=== PATIENT | male | born 1960 | race Caucasian/White ===

== ENCOUNTER 2021-09-10 16:38 | Outpatient (CLI) | payer OTHER, SELFPAY ==
[2021-09-10 16:48] VITALS: BP 142/88; PULSE 92; RESP 18; TEMP 36.6; O2SAT 100; BMI 29.8
[2021-09-10] MEDS: 0.9% Saline Lock 10 ML Syringe IV (16:54)
[2021-09-10 17:55] VITALS: BP 134/87; PULSE 87; RESP 16; TEMP 36.8; O2SAT 97
[2021-09-10 18:53] VITALS: BP 134/87; PULSE 85; RESP 16; TEMP 36.9; O2SAT 96
== END 2021-09-10 18:54 | disposition home or self-care (01) ==
LOC: MS3OUT 16:38 → MS3 16:39
PROVIDERS: PCP Internal Medicine; Referring Provider Nurse Practitioner Adult Health; Visit Provider Nurse Practitioner Adult Health
DX: Z23 Encounter for immunization (principal); U07.1 COVID-19
CPT/HCPCS: J7050; M0245; Q0245; A4216

== ENCOUNTER → 2025-01-04 | Outpatient (CLI) | payer OTHER, SELFPAY ==
--- NOTE | 2025-01-04 07:38 | CT_ITS ---
PROCEDURE: SINUS/FACIAL BONE REASON FOR EXAM: CHRONIC SINUSITIS W/POLYPOSIS TECHNIQUE: CT of the paranasal sinuses without contrast. Coronal and Sagittal reconstruction series were provided. One or more dose reduction techniques were used (e.g., Automated exposure control, adjustment of the mA and/or kV according to patient size, use of iterative reconstruction technique). COMPARISON: None. FINDINGS: Frontal: Mucosal thickening of the frontal sinuses worse on the left side. Ethmoid: Opacification of the ethmoid sinuses with erosion of the bony septations. Sphenoid: Mucosal thickening of the sphenoid sinus more prominent on the right side. Maxillary: Opacification of the left maxillary sinus. Moderate degree of mucosal thickening of the right maxillary sinus. Compromise of the ostiomeatal complexes bilaterally worse on the left side due to mucosal hypertrophy. Turbinates: Hypertrophy of the inferior turbinate in the right nasal fossa. Nasal Septum: Nasal septal deviation towards the left side of the midline. Mastoids/Middle Ears: Unremarkable. Incidental note is made of multiple small cervical lymph nodes. CT/Sinus/Facial Bone IMPRESSION: Pansinusitis. Reading Location: [place] [id number]
== END | disposition home or self-care (01) ==
PROVIDERS: PCP Internal Medicine; Referring Provider Otolaryngology; Visit Provider Otolaryngology
DX: J32.8 Other chronic sinusitis (principal); J33.0 Polyp of nasal cavity
CPT/HCPCS: 70486

== ENCOUNTER 2025-01-22 09:24 | Day surgery (SDC) | payer OTHER, SELFPAY ==
--- NOTE | 2025-01-10 07:58 | EKG12_ITS ---
Test Reason : PRE OP Blood Pressure : */* mmHG Vent. Rate : 84 BPM Atrial Rate : 84 BPM P-R Int : 154 ms QRS Dur : 88 ms QT Int : 372 ms P-R-T Axes : 46 93 64 degrees QTcB Int : 439 ms Normal sinus rhythm Rightward axis Borderline ECG Confirmed by ALISTAIR SEYMOUR, BRUNO ([id number]), medical transcription editor PENELOPE MCARTHUR ([id number]) on 01/10/2025 1:45:00 PM Referred By: Alberto Upton Confirmed By: BRUNO SAINZ MD
[2025-01-10 08:36] LABS: Hematocrit 47.8 % (40-54); Hemoglobin 15.8 g/dL (13.0-16.5); Mean Corp Hgb Conc 33.1 g/dL (32-36); Mean Corpuscular Hgb 31.7 pg (27.0-32.0); Mean Platelet Vol. 10.9 fl (6.2-12.0); Platelet Count 271 K/mm3 (150-450); RBC Distribution Width CV 12.9 % (11.6-14.6); RBC Distribution Width SD 45.9 fl (35.1-43.9); Red Blood Count 4.98 M/mm3 (4.6-6.2); White Blood Count 10.5 K/mm3 (4.4-11.0)
[2025-01-10 10:24] LABS: Hemoglobin A1c 6.9 % (<=5.6)
[2025-01-10 11:27] LABS: Anion Gap 10 (5-15); BUN 21 mg/dL (4-19); BUN/Creat Ratio 17.8 RATIO (10-20); Calcium,Total 9.6 mg/dL (7.6-11.0); Carbon Dioxide 28.1 mmol/L (21.0-32.0); Chloride 101 mmol/L (98-108); Creatinine, Serum 1.16 mg/dL (0.70-1.20); EST Glomerular Filtration Rate 71 (>60); Glucose 136 mg/dL (70-99); Potassium 4.4 mmol/L (3.3-5.1); Sodium Level 140 mmol/L (133-145)
--- NOTE | 2025-01-10 12:07 | PAT.ANESEVAL ---
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 When Was Last Pacemaker Check QUESTION #4 FULL TEXT: You/Your Family Experience fever (hyperthermia) with Anesthesia Last Oral Intake Last Oral intake: Last Oral Intake NPO since Meds taken in AM with sips of water? Meds patient instructed to take am of surgery PONV PONV - customer marketing assistant: PONV - customer marketing assistant Female No 01/08/25 14:14 HX of Motion Sickness No 01/08/25 14:14 HX of N/V After Surgery Yes 01/08/25 14:14 Non-Smoker Yes 01/08/25 14:14 Duration of Surgery greater No 01/08/25 14:14 than 60 minutes Number of Risk Factors 2 01/08/25 14:14 PONV Score Moderate Risk 01/08/25 14:14 Height & Weight Height & Weight: Anesthesia: Height & Weight Height 6 ft 09/10/21 16:48 Respiratory Assessment Respiratory Assessment - customer marketing assistant: Respiratory Tract Infection Hx - customer marketing assistant Hx Respiratory Tract Infection No 01/08/25 14:14 STOP Sleep Apnea STOP Sleep Apnea - customer marketing assistant: STOP Sleep Apnea - customer marketing assistant Hx Hypertension Yes 01/08/25 14:14 Hx Sleep Apnea No 01/08/25 14:14 CPAP BIPAP Do you snore loudly (louder Yes 01/08/25 14:14 than talking or can be heard Do you often feel tired/ No 01/08/25 14:14 fatigued/ sleepy during daytime? Has anyone observed you stop No 01/08/25 14:14 breathing during sleep? STOP Results Positive 01/08/25 14:14 QUESTION #5 FULL TEXT : Do you snore loudly (louder than talking or can be heard through closed doors)? 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 Specify any problems Hx of Preganancy in last 3 N/A 01/08/25 14:14 Months Nurse Filling Out Transfusion JZOLLINGE 01/08/25 14:14 & Questions: Date: 01/08/25 01/08/25 14:14 Time: 14:18 01/08/25 14:14 Patient unable to answer at this time (ie. confused, unrespo /Reproduction History /Reproductive History - customer marketing assistant: /Reproductive Hx- customer marketing assistant Hx Now No 01/08/25 14:14 Gestational Age (in weeks): EDC: Hx Hx Para Hx Section SAB No 01/08/25 14:14 PFSH Medical History Diabetes Dietary restriction Heartburn Non-smoker Home Medications ?Medication ?Instructions ?Recorded ?Last Taken ?Type hydrochlorothiazide 25 mg tablet 25 mg PO DAILY 09/10/21 Unknown History amlodipine 5 mg tablet 5 mg PO DAILY 01/08/25 Unknown History atorvastatin 10 mg tablet 10 mg PO QHS cholesterol 01/08/25 Unknown History dulaglutide 0.75 mg/0.5 mL 0.75 mg subcut .QTH 01/08/25 01/18/25 History subcutaneous pen injector (Trulicity) empagliflozin 25 mg tablet 25 mg PO .QD 01/08/25 01/18/25 History (Jardiance) Allergy/AdvReac Type Severity Reaction Status Date / Time Penicillins Allergy Severe Swelling Verified 01/22/25 09:57 Surgical History Hx of colonoscopy Hx of knee surgery Social History Smoking Status: Never smoker Recommendation Anesthesia Recommendation Anesthesia recommendation: OPTIMIZED for anesthesia
--- NOTE | 2025-01-10 14:35 | PAT.ANESEVAL ---
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 When Was Last Pacemaker Check QUESTION #4 FULL TEXT: You/Your Family Experience fever (hyperthermia) with Anesthesia Last Oral Intake Last Oral intake: Last Oral Intake NPO since Meds taken in AM with sips of water? Meds patient instructed to take am of surgery PONV PONV - manual lathe machinist: PONV - manual lathe machinist Female No 01/08/25 14:14 HX of Motion Sickness No 01/08/25 14:14 HX of N/V After Surgery Yes 01/08/25 14:14 Non-Smoker Yes 01/08/25 14:14 Duration of Surgery greater No 01/08/25 14:14 than 60 minutes Number of Risk Factors 2 01/08/25 14:14 PONV Score Moderate Risk 01/08/25 14:14 Height & Weight Height & Weight: Anesthesia: Height & Weight Height 6 ft 09/10/21 16:48 Respiratory Assessment Respiratory Assessment - manual lathe machinist: Respiratory Tract Infection Hx - manual lathe machinist Hx Respiratory Tract Infection No 01/08/25 14:14 STOP Sleep Apnea STOP Sleep Apnea - manual lathe machinist: STOP Sleep Apnea - manual lathe machinist Hx Hypertension Yes 01/08/25 14:14 Hx Sleep Apnea No 01/08/25 14:14 CPAP BIPAP Do you snore loudly (louder Yes 01/08/25 14:14 than talking or can be heard Do you often feel tired/ No 01/08/25 14:14 fatigued/ sleepy during daytime? Has anyone observed you stop No 01/08/25 14:14 breathing during sleep? STOP Results Positive 01/08/25 14:14 QUESTION #5 FULL TEXT : Do you snore loudly (louder than talking or can be heard through closed doors)? 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 Specify any problems Hx of Preganancy in last 3 N/A 01/08/25 14:14 Months Nurse Filling Out Transfusion JZOLLINGE 01/08/25 14:14 & Questions: Date: 01/08/25 01/08/25 14:14 Time: 14:18 01/08/25 14:14 Patient unable to answer at this time (ie. confused, unrespo /Reproduction History /Reproductive History - manual lathe machinist: /Reproductive Hx- manual lathe machinist Hx Now No 01/08/25 14:14 Gestational Age (in weeks): EDC: Hx Hx Para Hx Section SAB No 01/08/25 14:14 PFSH Medical History Diabetes Dietary restriction Heartburn Non-smoker Home Medications ?Medication ?Instructions ?Recorded ?Last Taken ?Type hydrochlorothiazide 25 mg tablet 25 mg PO DAILY 09/10/21 Unknown History amlodipine 5 mg tablet 5 mg PO DAILY 01/08/25 Unknown History atorvastatin 10 mg tablet 10 mg PO QHS cholesterol 01/08/25 Unknown History dulaglutide 0.75 mg/0.5 mL 0.75 mg subcut .QTH 01/08/25 Unknown History subcutaneous pen injector (Trulicity) empagliflozin 25 mg tablet 25 mg PO .QD 01/08/25 Unknown History (Jardiance) Allergy/AdvReac Type Severity Reaction Status Date / Time Penicillins Allergy Severe Swelling Verified 01/08/25 14:01 Surgical History (Updated 01/08/25 @ 14:34 by Susannah Balderas) Hx of colonoscopy Hx of knee surgery Social History Smoking Status: Never smoker Audit: Pertinent Findings Pertinent Findings EKG Perinent findings: 01/10/2025. Normal sinus rhythm 84 bpm. Right axis deviation. Recommendation Anesthesia Recommendation Anesthesia recommendation: OPTIMIZED for anesthesia
[2025-01-22] VITALS (11 sets, daily range): BP systolic 143–157; BP diastolic 88–98; PULSE 72–96; RESP 16–18; TEMP 36.1–36.6; O2SAT 90–98; BMI 34.7
--- NOTE | 2025-01-22 09:29 | PCM.PRE.AN2 ---
ASA Classification* ASA Classification ASA Classification: 2 Assessment & Plan Anesthesia* Anesthesia Assessment Anesthesia Assessment: Discussed sedation and/or anesthesia options, risks, benefits, and alternatives with patient/parents/legal guardian/POA. Questions invited. The patient/parents/legal guardian/POA seems to understand and agrees to proceed with anesthesia plan. Reviewed the physical assessment, medical history, allergy history and patient home medications list prior to surgery/procedure/anesthetic and documented any changes. Performed airway and anesthesia risk assessments. Anesthesia Type Anesthesia Type: General Anesthesia Focused Assessment* Airway Assessment Mouth opens: >3 cm Mallampati Score: II Focused Labs Anesthesia Preop lab: CBC WBC 10.5 K/mm3 (4.4-11.0) 01/10/25 08:01/10/25 RBC 4.98 M/mm3 (4.6-6.2) 01/10/25 08:21 01/10/25 Hgb 15.8 g/dL (13.0-16.5) 01/10/25 08:21 01/10/25 Hct 47.8 % (40-54) 01/10/25 08:21 01/10/25 Plt Count 271 K/mm3 (150-450) 01/10/25 08:21 01/10/25 CHEMISTRY Potassium 4.4 mmol/L (3.3-5.1) 01/10/25 08:21 01/10/25 Sodium 140 mmol/L (133-145) 01/10/25 08:21 01/10/25 BUN 21 mg/dL (4-19) H 01/10/25 08:21 01/10/25 Creatinine 1.16 mg/dL (0.70-1.20) 01/10/25 08:21 01/10/25 Glucose 136 mg/dL (70-99) H 01/10/25 08:21 01/10/25 COAG Pre-Assessment Diagnosis/Proposed Procedure Planned Operative Procedure(s): Septoplasty and FESS Anesthesia History 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 When Was Last Pacemaker Check QUESTION #4 FULL TEXT: You/Your Family Experience fever (hyperthermia) with Anesthesia Last Oral Intake Last Oral intake: Last Oral Intake NPO since Meds taken in AM with sips of water? Meds patient instructed to take am of surgery PONV PONV - manufacturing engineering manager: PONV - manufacturing engineering manager Female No 01/08/25 14:14 HX of Motion Sickness No 01/08/25 14:14 HX of N/V After Surgery Yes 01/08/25 14:14 Non-Smoker Yes 01/08/25 14:14 Duration of Surgery greater No 01/08/25 14:14 than 60 minutes Number of Risk Factors 2 01/08/25 14:14 PONV Score Moderate Risk 01/08/25 14:14 Height & Weight Height & Weight: Anesthesia: Height & Weight Height 6 ft 09/10/21 16:48 Respiratory Assessment Respiratory Assessment - manufacturing engineering manager: Respiratory Tract Infection Hx - manufacturing engineering manager Hx Respiratory Tract Infection No 01/08/25 14:14 STOP Sleep Apnea STOP Sleep Apnea - manufacturing engineering manager: STOP Sleep Apnea - manufacturing engineering manager Hx Hypertension Yes 01/08/25 14:14 Hx Sleep Apnea No 01/08/25 14:14 CPAP BIPAP Do you snore loudly (louder Yes 01/08/25 14:14 than talking or can be heard Do you often feel tired/ No 01/08/25 14:14 fatigued/ sleepy during daytime? Has anyone observed you stop No 01/08/25 14:14 breathing during sleep? STOP Results Positive 01/08/25 14:14 QUESTION #5 FULL TEXT : Do you snore loudly (louder than talking or can be heard through closed doors)? 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 Specify any problems Hx of Preganancy in last 3 N/A 01/08/25 14:14 Months Nurse Filling Out Transfusion [place] 01/08/25 14:14 & Questions: Date: 01/08/25 01/08/25 14:14 Time: 14:18 01/08/25 14:14 Patient unable to answer at this time (ie. confused, unrespo /Reproduction History /Reproductive History - manufacturing engineering manager: /Reproductive Hx- manufacturing engineering manager Hx Now No 01/08/25 14:14 Gestational Age (in weeks): EDC: Hx Hx Para Hx Section SAB No 01/08/25 14:14 Active Medications Active Medications: Current Medications Generic Name Dose Route Start Last Admin Trade Name Freq PRN Reason Stop Dose Admin Oxymetazoline HCl 3 spray 01/22/25 10:40 Oxymetazoline 0.05% 1 [place] Plymouth.Btl NASAL 01/22/25 10:41 PREOP ONE [facility] Medical History Diabetes Dietary restriction Heartburn Non-smoker Home Medications ?Medication ?Instructions ?Recorded ?Last Taken ?Type hydrochlorothiazide 25 mg tablet 25 mg PO DAILY 09/10/21 Unknown History amlodipine 5 mg tablet 5 mg PO DAILY 01/08/25 Unknown History atorvastatin 10 mg tablet 10 mg PO QHS cholesterol 01/08/25 Unknown History dulaglutide 0.75 mg/0.5 mL 0.75 mg subcut .QTH 01/08/25 Unknown History subcutaneous pen injector (Trulicity) empagliflozin 25 mg tablet 25 mg PO .QD 01/08/25 Unknown History (Jardiance) Allergy/AdvReac Type Severity Reaction Status Date / Time Penicillins Allergy Severe Swelling Verified 01/08/25 14:01 Surgical History Hx of colonoscopy Hx of knee surgery Social History Smoking Status: Never smoker Review of Systems (Anesthesia) ROS Narrative System reviewed and no additional complaints, except as documented.
[2025-01-22] MEDS: 0.9% Normal Saline (1000mL) 1,000 ML 15 ML IV (10:21)
[2025-01-22] MEDS: Oxymetazoline 0.05% 1 SPRAY SPRAY.BTL 3 SPRAY NASAL (10:21)
--- NOTE | 2025-01-22 10:40 | ETH_PTH ---
PATIENT: SYD NIXON [place] [facility] [facility] [id number] AGE/SX: 64/M ROOM: RE01/22/[address]: Dr. Alberto Upton MD : [id number] BED: DIS: 01/22/2025 SPEC #: [id number] RECD: 01/22/25 14:34 STATUS: DOMINICK REQ #: [id number] SHAQ: 01/22/25 10:[address]: Alberto Upton DEPT: SURGICAL PATHOLOGY RECD BY: Cornelius Funk ENTERED: 01/22/25 14:35 SP TYPE: ETH TISS OTHR DR: Dr. Griffin Bautista MD Tissues: A - Ethmoid sinus, NOS B - Ethmoid sinus, NOS C - Ethmoid sinus, NOS Procedures: Surgery Specimen Level IV HEADER OPERATION: Septoplasty and FESS with navigation PRE-OP DIAGNOSIS: Nasal polyp, deviated nasal septum TISSUE SUBMITTED: A- Right sinus content, B- Left sinus content, C-Nasal septum MICROSCOPIC DIAGNOSIS A. Right sinus, contents, removal: * Benign respiratory type mucosa and bone with mild chronic inflammation and benign inflammatory polyps B. Left sinus, contents, removal: * Benign respiratory type mucosa and bone with mild chronic inflammation and benign inflammatory polyps C. Nasal septum, excision: * Benign cartilage and respiratory type mucosa MICROSCOPIC DESCRIPTION Slides are reviewed. GROSS DESCRIPTION A. Received in formalin in a container labeled with the patient's name, date of , and right sinus contents are multiple red-cortés fragments of soft tissue measuring 3.0 x 2.0 x 0.8 cm in aggregate. Submitted in toto in A1-2. B. Received in formalin in a container labeled with the patient's name, date of , and left sinus contents are multiple red-cortés fragments of soft tissue measuring 3.0 x 2.2 x 0.9 cm in aggregate. Submitted in toto in B1. C. Received in formalin in a container labeled with the patient's name, date of , and nasal septum are multiple white-cortés, indurated fragments of possible cartilage and red blood clot material measuring 2.0 x 1.0 x 0.7 cm in aggregate. Submitted in toto in C1. [facility] 01/23/2025 CPT:01585t9
--- NOTE | 2025-01-22 11:16 | PCM.DC.SUM ---
Providers Primary Care Physician: Dr. Griffin Bautista MD Reason For Visit: Septoplasty and FESS Medications at Discharge Home Medications hydrochlorothiazide 25 mg tablet 25 mg PO DAILY 09/10/21 amlodipine 5 mg tablet 5 mg PO DAILY 01/08/25 atorvastatin 10 mg tablet 10 mg PO QHS cholesterol 01/08/25 dulaglutide 0.75 mg/0.5 mL subcutaneous pen injector (Trulicity) 0.75 mg subcut .QTH 01/08/25 empagliflozin 25 mg tablet (Jardiance) 25 mg PO .QD 01/08/25 Weight / BMI Weight Weight: 113 kg Body Mass Index (BMI) 34.7 ABG / Lab / Microbiology Data 01/10/25 08:21 01/10/25 08:21 D/C Instructions Discharge Diet: No restrictions Discharge Activity: Return to Normal Activity Additional Activity Instructions: No nose blowing Start saline irrigation 4x/day on 01/23/25 DC O2, CPAP, BIPAP Needs Home O2 Discharge instructions: No Please Follow Up With: Alberto Upton MD When: 8 days Meaningful Use Info Meaningful Use Meaningful Use Diagnoses (Choose all that apply): None applicable Ischemic Stroke Statin Dosing Therapy Reference: STATIN DOSE THERAPY REFERENCE: * Patients > 75 years receive moderate or high dose statin therapy. * Patients 75 years or YOUNGER should receive HIGH intensity statin dose unless contraindicated. You will be required to document reason for non-treatment if statin daily dose does not meet guidelines. HIGH DOSE STATIN THERAPY DAILY Atorvastatin > than or = to 40 mg Rosuvastatin > than or = to 20 mg Amlodipine + Atorvastatin > than or = to 2.5/40 mg Ezetimibe + Simvastatin 10/80 mg Simvastatin 80mg Discharge Plan Admission Attending Provider: Alberto Upton Primary Care Provider: Griffin Bautista Instructions Print Language: Macedonian Discharge Orders/Prescriptions Prescriptions: No Action hydrochlorothiazide 25 mg Tablet 25 mg PO DAILY atorvastatin 10 mg tablet 10 mg PO QHS Trulicity 0.75 mg/0.5 mL pen injector 0.75 mg SUBCUT .QTH Patient Comments: INJECT 0.75 MG SUBCUTANEOUSLY ONE TIME A WEEK. INJECT DOSE ONCE PER WEEK. DISCARD PEN AFTER Jardiance 25 mg tablet 25 mg PO .QD amlodipine 5 mg tablet 5 mg PO DAILY Referrals / Follow Up: Griffin Bautista MD [Primary Care Provider] - Disposition Disposition (needs filled in before D/C Order can be placed): Home, Self Care
[2025-01-22] MEDS: Oxymetazoline 0.05% 1 SPRAY SPRAY.BTL 15 SPRAY (11:32)
[2025-01-22] MEDS: Lidocaine 1% /Epi 1:100 (20ml) 20 ML Vial (11:32)
[2025-01-22] MEDS: Mupirocin Ointment 22gm Tube 1 APPLIC (13:10)
--- NOTE | 2025-01-22 13:19 | PCM.OPRPT ---
Operative Report (Standard) Operative Information Date of Procedure: 01/22/25 Pre-Operative Diagnosis: chronic sinusitis with polyposis deviated nasal septum Post-Operative Diagnosis: same Surgery/Procedure Performed: bilateral total ethmoidectomy bilateral maxillary antrostomy septoplasty use of navigation computer graphic artist: No Type of Anesthesia: General RN Documented Start/Stop Times: Operation Date: 01/22/25 10:40 Case Time Into Pre-Op 01/22/25 09:59 Out of Pre-Op 01/22/25 11:09 Procedure Start Time: 11:32 Procedure Stop Time: 13:14 Select all DRAINS/GRAFTS/IMPLANTS that apply: None Estimated Blood Loss: 30 cc Specimen collected: Yes Description of specimen(s) removed: right and left sinus contents, septum Description of surgery: The patient was taken to the operating room on 01/23/2020. The patient was placed in the supine position on the operating table. The patient was given sufficient general endotracheal anesthesia. The head of bed was elevated 30 degrees. The navigation system was placed and verified per protocol and found to be accurate. 0 and 30 degrees rigid nasal endoscopes were used throughout the entire case. The middle turbinate uncinate process and polyps were injected with 1% lidocaine with epinephrine bilaterally. The right middle turbinate was medialized with a Dallas elevator. Polyp was removed from the middle meatus using a sinus shaver. A ball-tipped sinus seeker was placed into the patient's maxillary sinus. The maxillary antrostomy was created with a backbiter and widen posteriorly with a Felipe-Cut forcep. The uncinate process was taken down using a microdebrider. Next, the ethmoid bulla was opened with a small curette. Anterior and posterior ethmoidectomy were then carried out using curette, sinus shaver and 45 degree Blakesley Benito forceps. Ethmoid cells were verified for relation to the skull base and orbit prior to being entered with the navigation system. I then placed Afrin pledgets into the sinonasal cavity. A right hemitransfixion incision was made with a 15 blade. The mucoperichondrium was elevated off of the left-hand side of the septum with a Dallas elevator. An anterior and posterior tunnel were created in this fashion. The bony cartilaginous junction was with a Dallas elevator. A posterior tunnel was created on the right side developed by elevating the mucoperichondrium with a Dallas. The deviated portions of of the quadrangular cartilage were removed using a Dallas elevator. a large septal spur on the left-hand side was removed. The hemitransfixion incision was closed with 4-0 chromic. Next attention was turned to the left side. The middle turbinate was medialized with a Dallas elevator. A large polyp was removed from the middle meatus using a sinus shaver. The maxillary antrostomy was created with a backbiter and Felipe-Cut forceps. The uncinate process was taken down using a sinus shaver. The ethmoid bulla was opened with a small curette. Anterior posterior ethmoidectomy were then carried out using a sinus shaver curette and Blaniniley Benito forceps. Ethmoid cells were verified for relation to the skull base and orbit prior to being entered with the navigation system. Hemostasis was then achieved using Afrin pledgets. The pledgets were then removed bilaterally and Yoel powder was applied bilaterally for absolute hemostasis. Almazan nasal splints were applied to each side of the septum and sewn through and through with 3-0 silk. Yoel was placed on the hemitransfixion incision. The procedure was then terminated. The patient was then awoken and brought to the recovery room in stable condition blood loss less than 30 cc replacement none. Sponge, needle, instrument count were correct at the end of the procedure. Surgical Findings: extensive polyposis deviated septum Complications Complications: No
--- NOTE | 2025-01-22 13:36 | PCM.POST.ANE ---
Anesthesia: Postop Eval I Current Vital Signs Temperature: 97.7 F Pulse Rate: 96 Blood Pressure: 143/93 Respiratory Rate: 18 Pulse Ox: 90 Oxygen Delivery Method: Room Air Assessment Airway patent: Yes Spontaneous unlabored respirations: Yes Mental status: Awake nausea: No Vomiting: No Anesthesia Complication: No Fluid Hydration Crystalloid volume administer (ml): 1,100 Total IV fluid infused: 1,100 Progress Note Anesthesia document: Postop Eval 1 completed: Yes
[2025-01-22 13:54] LABS: Bedside Glucose 148 mg/dL (74-106)
--- NOTE | 2025-01-22 14:02 | POSTOPAN2_ITS ---
Anesthesia Postop Eval I Sum Postop Eval Completion status Anesthesia document: Postop Eval 1 completed: Yes Anesthesia Postop Eval I Summary Anesthesia Postop Eval I Summary: Anesthesia Postop Eval I: Assessment Summary Airway patent Yes 01/22/25 13:37 [email or web address] [email or web address] Spontaneous unlabored Yes 01/22/25 13:37 NICKEL [email or web address] respirations Mental status Awake 01/22/25 13:37 [email or web address] [email or web address] nausea No 01/22/25 13:37 NICKEL PLATER.JDEF Vomiting No 01/22/25 13:37 [email or web address] [email or web address].[email or web address] Anesthesia Postop Eval I: Fluid Summary Crystalloid volume administer 1,100 01/22/25 13:37 [email or web address] [email or web address].JDEF (ml) Colloids volume administered ( ml) Blood Product volume administered (ml) Total IV fluid infused 1,100 01/22/25 13:37 [email or web address] [email or web address].JDEF Anesthesia Postop Eval I: Summary Notes Anesthesia Complication No 01/22/25 13:37 [email or web address] [email or web address] Anesthesia Complication Comment: Post-operative progress note Anesthesia: Postop Eval II Evaluation Mental status: Awake Pain Level: 0 nausea: No Vomiting: No
--- NOTE | 2025-01-22 14:02 | PCM.POSTANE2 ---
Anesthesia Postop Eval I Sum Postop Eval Completion status Anesthesia document: Postop Eval 1 completed: Yes Anesthesia Postop Eval I Summary Anesthesia Postop Eval I Summary: Anesthesia Postop Eval I: Assessment Summary Airway patent Yes 01/22/25 13:37 DINKEY OPERATOR.[email or web address] Spontaneous unlabored Yes 01/22/25 13:37 DINKEY OPERATOR.JDEF respirations Mental status Awake 01/22/25 13:37 DINKEY OPERATOR.JDEF nausea No 01/22/25 13:37 DINKEY OPERATOR.JDEF Vomiting No 01/22/25 13:37 DINKEY OPERATOR.JDEF Anesthesia Postop Eval I: Fluid Summary Crystalloid volume administer 1,100 01/22/25 13:37 DINKEY OPERATOR.JDEF (ml) Colloids volume administered ( ml) Blood Product volume administered (ml) Total IV fluid infused 1,100 01/22/25 13:37 DINKEY OPERATOR.JDEF Anesthesia Postop Eval I: Summary Notes Anesthesia Complication No 01/22/25 13:37 DINKEY OPERATOR.JDEF Anesthesia Complication Comment: Post-operative progress note Anesthesia: Postop Eval II Evaluation Mental status: Awake Pain Level: 0 nausea: No Vomiting: No
== END 2025-01-22 15:27 | disposition home or self-care (01) ==
LOC: SDC 09:24 → AC 09:26
PROVIDERS: Anesthesiology; PCP Internal Medicine; Referring Provider Otolaryngology; Visit Provider Otolaryngology
PROC: (CPT 31255; principal; 2025-01-22 10:10)
DX: J32.9 Chronic sinusitis, unspecified (principal); E11.9 Type 2 diabetes mellitus without complications; J34.2 Deviated nasal septum; J33.9 Nasal polyp, unspecified; J30.1 Allergic rhinitis due to pollen; J34.89 Other specified disorders of nose and nasal sinuses; Z79.85 Long-term (current) use of injectable non-insulin antidiabetic drugs
CPT/HCPCS: 31255; 31256; 30520; 61782; 36415; 80048; 82962; 83036; 85027; 88305; 93005; J2405